=== PATIENT | female | born 1995 | race Caucasian/White ===

== ENCOUNTER 2020-05-06 10:54 | Emergency (ER) | payer OTHER ==
[~2020-05-06] VITALS: Ht 167.6 cm; Wt 50.0 kg
[2020-05-06 11:00] VITALS: BP 131/87
[2020-05-06] MEDS ORDERED: DOXY100C2 PO (11:19)
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
== END 2020-05-06 11:40 | disposition home or self-care (01) ==
LOC: ER 10:54
DX: S70.362A Insect bite (nonvenomous), left thigh, initial encounter (principal); W57.XXXA Bitten or stung by nonvenomous insect and other nonvenomous arthropods, initial encounter; Y93.89 Activity, other specified; Y92.89 Other specified places as the place of occurrence of the external cause; Y99.8 Other external cause status
CPT/HCPCS: 99283

== ENCOUNTER 2020-07-11 08:53 | Emergency (ER) | payer OTHER ==
[~2020-07-11] VITALS: Ht 160 cm; Wt 42.9 kg
[~2020-07-11 08:53] MED LIST: DOXY100C2 PO
[2020-07-11 08:58] VITALS: BP 105/76
[2020-07-11] MEDS ORDERED: AMOX500C PO (09:43)
--- NOTE | 2020-07-11 09:43 | PHYS DOC ---
Past History Past Medical History: No Pertinent History Past Surgical History: No Surgical History Alcohol Use: None General Adult EDM: Chief Complaint: SORE THROAT HPI: HPI: Patient is a 24-year-old female who presented to ER today for evaluation of sore throat, body ache, nonproductive cough for several days. Patient denies any headache, no abdominal pain, no nausea vomiting. Patient denies being exposed to anybody who tested positive for COVID-19 Review of Systems: Review of Systems: Constitutional: Denies fever or chills Eyes: Denies change in visual acuity HENT: Positive for sore throat Respiratory: Positive for cough, no trouble breathing. Cardiovascular: Denies chest pain or edema GI: Denies abdominal pain, nausea, vomiting, bloody stools or diarrhea : Denies dysuria Musculoskeletal: Denies back pain or joint pain Integument: Denies rash Neurologic: Denies headache, focal weakness or sensory changes Endocrine: Denies polyuria or polydipsia Lymphatic: Denies swollen glands Psychiatric: Denies depression or anxiety Heart Score: Risk Factors: Risk Factors: DM, Current or recent (<one month) smoker, HTN, HLP, family history of CAD, obesity. Risk Scores: Score 0 - 3: 2.5% MACE over next 6 weeks - Discharge Home Score 4 - 6: 20.3% MACE over next 6 weeks - Admit for Clinical Observation Score 7 - 10: 72.7% MACE over next 6 weeks - Early Invasive Strategies Allergies: Allergies: Allergies Coded Allergies Type Severity Reaction Last Updated Verified No Known Drug Allergies 05/06/20 No Physical Exam: PE: Constitutional: Well developed, well nourished, no acute distress, non-toxic appearance. [] HENT: Normocephalic, atraumatic, bilateral external ears normal, oropharynx moist, erythema with bilateral tonsillar exudation and erythema, nose normal. [] Eyes: PERRLA, EOMI, conjunctiva normal, no discharge. [] Neck: Normal range of motion, no tenderness, supple, no stridor. [] Cardiovascular:Heart rate regular rhythm, no murmur [] Lungs & Thorax: Bilateral breath sounds clear to auscultation [] Abdomen: Bowel sounds normal, soft, no tenderness, no masses, no pulsatile masses. [] Skin: Warm, dry, no erythema, no rash. [] Back: No tenderness, no CVA tenderness. [] Extremities: No tenderness, no cyanosis, no clubbing, ROM intact, no edema. [] Neurologic: Alert and oriented X 3, normal motor function, normal sensory function, no focal deficits noted. [] Psychologic: Affect normal, judgement normal, mood normal. [] Current Patient Data: Vital Signs: Vital Signs Date Time Temp Pulse Resp B/P (MAP) Pulse Ox O2 Delivery O2 Flow Rate FiO2 07/11/20 08:58 99.0 96 16 105/76 (86) 98 Room Air EKG: EKG: [] Radiology/Procedures: Radiology/Procedures: [][address] [address] IMAGING REPORT Signed PATIENT: PARKER BILLS ACCOUNT: [id number] : 1995 LOCATION: ER AGE: 24 SEX: F EXAM STATUS: REG ER ORD. PHYSICIAN: ANNALEE LEWIS DO REASON: cough PROCEDURE: CHEST AP ONLY INDICATION: Reason: cough / Spl. Instructions: / History: COMPARISON: None. FINDINGS: Single view of chest obtained. Cardiac silhouette is unremarkable. Hyperexpanded lungs without focal airspace consolidation. Obliquely oriented line along the right lateral thorax which is most likely secondary to a skin fold given the morphology. IMPRESSION: * No focal airspace consolidation or edema. Electronically signed by: Meenakshi Jaffe MD (07/11/2020 10:01 AM) [id number] DICTATED AND SIGNED BY: MEENAKSHI JAFFE MD DATE: 07/11/20 1001 CC: ANNALEE LEWIS DO; PHILLIP MAYES MD ~ Course & Med Decision Making: Course & Med Decision Making Pertinent Labs and Imaging studies reviewed. (See chart for details) [] Dragon Disclaimer: Dragon Disclaimer: This electronic medical record was generated, in whole or in part, using a voice recognition dictation system. Departure Departure: Impression: Primary Impression: Strep pharyngitis Disposition: HOME/RESIDENCE PRIOR TO ADM Condition: STABLE Referrals: PHILLIP MAYES MD (PCP) follow up with your doctor on Wednesday for reevaluation. Patient Instructions: Strep Throat Additional Instructions: Thank you for visiting our Emergency Department. We appreciate you trusting us with your care. If any additional problems come up don't hesitate to return to visit us. Please follow up with your primary care provider so they can plan additional care if needed and know about the problem that you had. If symptoms worsen come back to the Emergency Department. Any concerning symptoms that start such as chest pain, shortness of air, weakness or numbness on one side of the body, running high fevers or any other concerning symptoms return to the ER. Scripts Amoxicillin (AMOXICILLIN) 500 Mg Capsule 1 CAP PO TID for streph, #30 CAP Prov: ANNALEE LEWIS DO 07/11/20 Justification of Admission: Justification of Admission: Justification of Admission Dx: N/A ANNALEE LEWIS DO Jul 11, 2020 09:43
--- NOTE | 2020-07-11 10:04 | RAD ---
INDICATION: Reason: cough / Spl. Instructions: / History: COMPARISON: None. FINDINGS: Single view of chest obtained. Cardiac silhouette is unremarkable. Hyperexpanded lungs without focal airspace consolidation. Obliquely oriented line along the right lateral thorax which is most likely secondary to a skin fold given the morphology. IMPRESSION: * No focal airspace consolidation or edema. Electronically signed by: Charly Toney MD (07/11/2020 10:01 AM) [id number]
--- NOTE | 2020-07-12 08:50 | NUR ---
IP: attempt to notify patient of COVID result, unable to leave call back message.
--- NOTE | 2020-07-12 15:06 | NUR ---
IP: Notified patient of COVID result.
== END 2020-07-11 09:58 | disposition home or self-care (01) ==
LOC: ER 08:53
DX: J02.0 Streptococcal pharyngitis (principal); Z20.828 Contact with and (suspected) exposure to other viral communicable diseases
CPT/HCPCS: 71045; 87880; 99284; U0003

== ENCOUNTER 2020-08-13 21:06 | Emergency (ER) | payer OTHER ==
[~2020-08-13] VITALS: Ht 160 cm; Wt 42.9 kg
[~2020-08-13 21:06] MED LIST changes: +AMOX500C PO
[2020-08-13 21:15] VITALS: BP 98/74
[2020-08-13] MEDS ORDERED: IV NORMAL SALINE 1,000ML 1,000 ML IV ONE (22:30)
--- NOTE | 2020-08-13 22:38 | PHYS DOC ---
Past History Past Medical History: Other Additional Past Medical Histor: benign cyst on thyroid Past Surgical History: No Surgical History Alcohol Use: None General Adult EDM: Chief Complaint: ANXIETY/PANIC ATTACK HPI: HPI: Patient is a 25-year-old female brought in by EMS for "anxiety". Patient states she has not been feeling well today has had some congestion and achiness. Says that she smoked marijuana with her and started feeling tingling in her extremities palpitations shortness of breath. Patient is notably hyperventilating and anxious on presentation. Patient states she does not use any other drugs. Has had similar presentations in the past with negative work- up. She says she only smokes occasionally, not every day. Says she and her have smoked this particular marijuana previously without any adverse re actions. Review of Systems: Review of Systems: Constitutional: Denies fever or chills Eyes: Denies change in visual acuity HENT: Denies nasal congestion or sore throat Respiratory: Denies cough or shortness of breath Cardiovascular: Denies chest pain or edema complains of tachycardia and palpitations GI: Denies abdominal pain, nausea, vomiting, bloody stools or diarrhea : Denies dysuria Musculoskeletal: Denies back pain or joint pain Integument: Denies rash Neurologic: Denies headache, focal weakness or sensory changes complaining of tremors and paresthesias Endocrine: Denies polyuria or polydipsia Lymphatic: Denies swollen glands Psychiatric: Denies depression or anxiety Heart Score: Risk Factors: Risk Factors: DM, Current or recent (<one month) smoker, HTN, HLP, family history of CAD, obesity. Risk Scores: Score 0 - 3: 2.5% MACE over next 6 weeks - Discharge Home Score 4 - 6: 20.3% MACE over next 6 weeks - Admit for Clinical Observation Score 7 - 10: 72.7% MACE over next 6 weeks - Early Invasive Strategies Current Medications: Current Meds: Current Medications Medications (Trade) Dose Ordered Sig/Terry Start Time Stop Time Status Last Admin Dose Admin Lorazepam (Ativan Inj) 0.5 mg 1X ONCE 08/13/20 22:30 08/13/20 22:31 DC Sodium Chloride 1,000 ml @ 1,000 mls/hr 1X ONCE 08/13/20 22:30 08/13/20 23:29 Allergies: Allergies: Allergies Coded Allergies Type Severity Reaction Last Updated Verified No Known Drug Allergies 07/11/20 No Physical Exam: PE: Constitutional: Well developed, well nourished, no acute distress, non-toxic appearance. [] HENT: Normocephalic, atraumatic, bilateral external ears normal, oropharynx moist, no oral exudates, nose normal. [] Eyes: PERRLA, EOMI, conjunctiva normal, no discharge. [] Neck: Normal range of motion, no tenderness, supple, no stridor. [] Cardiovascular:Heart rate tachycardic, regular rhythm, no murmur [] Lungs & Thorax: Bilateral breath sounds clear to auscultation [] mild tachypnea Abdomen: Bowel sounds normal, soft, no tenderness, no masses, no pulsatile masses. [] Skin: Warm, dry, no erythema, no rash. [] Back: No tenderness, no CVA tenderness. [] Extremities: No tenderness, no cyanosis, no clubbing, ROM intact, no edema. [] Neurologic: Alert and oriented X 3, normal motor function, normal sensory function, no focal deficits noted. [] Psychologic: Affect normal, judgement normal, mood normal. [] Current Patient Data: Vital Signs: Vital Signs Date Time Temp Pulse Resp B/P (MAP) Pulse Ox O2 Delivery O2 Flow Rate FiO2 08/13/20 21:15 98.4 70 22 98/74 (82) 92 Room Air EKG: EKG: Sinus tachycardia, rightward axis, normal intervals, no ectopy [] Radiology/Procedures: Radiology/Procedures: [] Course & Med Decision Making: Course & Med Decision Making Patient able to calm down and given IV fluids, heart rate returns 80. Discussed with patient mild hypokalemia will give prescription for follow-up with primary care and the guidance center. Pertinent Labs and Imaging studies reviewed. (See chart for details) [] Dragon Disclaimer: Dragon Disclaimer: This electronic medical record was generated, in whole or in part, using a voice recognition dictation system. Departure Departure: Impression: Primary Impression: Anxiety Additional Impression: Hypokalemia Disposition: 01 DC HOME SELF CARE/HOMELESS Condition: STABLE Referrals: PHILLIP MAYES MD (PCP) Scripts Hydroxyzine Hcl (HYDROXYZINE HCL) 25 Mg Tablet 1 TAB PO TID for anxiety for 20 Days, #60 TAB Prov: EMMY WILLIAM MD 08/14/20 Potassium Chloride (Potassium Chloride) 10 Meq Tab.er.prt 10 MEQ PO BID for hypokalemia for 5 Days, #10 TAB.SR Prov: EMMY WILLIAM MD 08/14/20 EMMY WILLIAM MD Aug 13, 2020 22:38
[2020-08-13 23:15] LABS: BASO % 0 % (0-3); EOS % 0 % (0-3); HEMATOCRIT 39.3 % (36.0-47.0); LYMPH # 1.2 x10^3/uL (1.0-4.8); LYMPH % 12 % (24-48); MEAN CORPUSCULAR HEMOGLOBIN 31 pg (25-35); MEAN CORPUSCULAR HGB CONC 33 g/dL (31-37); MEAN CORPUSCULAR VOLUME 92 fL (79-100); MONO # 0.5 x10^3/uL (0.0-1.1); MONO % 5 % (0-9); NEUT # 8.5 x10^3uL (1.8-7.7); NEUT % 83 % (31-73); PLATELET COUNT 222 x10^3/uL (140-400); RED BLOOD COUNT 4.25 x10^6/uL (3.50-5.40); RED CELL DISTRIBUTION WIDTH 12.9 % (11.5-14.5); WHITE BLOOD COUNT 10.3 x10^3/uL (4.0-11.0)
[2020-08-13 23:20] LABS: BILIRUBIN,URINE NEG (NEG); CLARITY,URINE CLEAR; COLOR,URINE YELLOW; GLUCOSE,URINE 250 mg/dL (NEG)
[2020-08-13 23:21] LABS: BACTERIA,URINE 0 /HPF (0-FEW); NITRITE,URINE NEG (NEG); RBC,URINE 0 /HPF (0-2); SQUAMOUS EPITHELIAL CELL,UR OCC /LPF; UROBILINOGEN,URINE 0.2 mg/dL (0.2 mg/dL); WBC,URINE OCC /HPF (0-4)
[2020-08-13 23:33] LABS: CALCIUM 9.1 mg/dL (8.5-10.1); CREATININE 0.8 mg/dL (0.6-1.0); GFR 88.9; POTASSIUM 3.2 mmol/L (3.5-5.1)
[2020-08-13 23:37] LABS: BARBITURATES NEG (NEG); BENZODIAZEPINES NEG (NEG); CANNABINOIDS NEG (NEG); COCAINE NEG (NEG); METHADONE NEG (NEG); OPIATES NEG (NEG); PHENCYCLIDINE NEG (NEG)
[2020-08-13 23:39] LABS: AMPHETAMINE/METHAMPHETAMINE NEG (NEG)
[2020-08-13 23:41] LABS: ALBUMIN 4.1 g/dL (3.4-5.0); ALBUMIN/GLOBULIN RATIO 1.2 (1.0-1.7); MAGNESIUM 2.1 mg/dL (1.8-2.4); TOTAL BILIRUBIN 0.2 mg/dL (0.2-1.0); TOTAL PROTEIN 7.4 g/dL (6.4-8.2)
[2020-08-14] MEDS ORDERED: POTASSIUM CHLORIDE 20 MEQ TABLET.ER. PO ONE ×2 (00:20→01:00)
[2020-08-14] MEDS ORDERED: POTA10TA32 PO (00:50)
[2020-08-14] MEDS ORDERED: HYDR25TA PO (00:50)
--- NOTE | 2020-08-14 03:47 | EKG ---
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
== END 2020-08-14 01:15 | disposition home or self-care (01) ==
LOC: ER 21:06
DX: F41.9 Anxiety disorder, unspecified (principal); E87.6 Hypokalemia
CPT/HCPCS: 36415; 80053; 80307; 81001; 81025; 82947; 83735; 84443; 84484; 85025; 85379; 93005; 96361; 96374; 99284; J2060; J7030

== ENCOUNTER 2020-08-22 22:56 | Emergency (ER) | payer OTHER ==
[~2020-08-22] VITALS: Ht 160 cm; Wt 42.9 kg
[~2020-08-22 22:56] MED LIST changes: +HYDR25TA PO; +POTA10TA32 PO
--- NOTE | 2020-08-22 23:12 | EKG ---
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
[2020-08-22] MEDS ORDERED: diphenhydrAMINE 50 MG/ML VIAL IVP ONE (23:30)
[2020-08-22] MEDS ORDERED: IV NORMAL SALINE 1,000ML 1,000 ML IV ONE (23:30)
--- NOTE | 2020-08-22 23:41 | PHYS DOC ---
Past History Past Medical History: Seizure, Other Additional Past Medical Histor: benign cyst on thyroid Past Surgical History: No Surgical History Alcohol Use: None General Adult EDM: Chief Complaint: Palpitations HPI: HPI: 25-year-old female presents with palpitations. The patient has been having palpitations for the last couple of hours. She has some mild shortness of breath, but denies diaphoresis. She has not been doing anything strenuous to cause this. She was seen in this emergency room about a week ago after having a seizure. She was found to be low in calcium and potassium. She has been taking hydroxyzine as well as potassium and calcium supplements all week as prescribed. The patient does smoke marijuana twice a month but has not smoked anything since the last week because of the seizure. She does not smoke cigarettes. She does not vape. She does not drink a lot of caffeine. She denies any other drug or alcohol use. She admits to being anxious about what is going on, but does not have a significant anxiety history. She has never been hospitalized or placed on medications until the recent hydroxyzine. She denies fever or chills. She states that she is eating and drinking normally. She has always been underweight. Review of Systems: Review of Systems: Constitutional: Denies fever or chills Eyes: Denies change in visual acuity HENT: Denies nasal congestion or sore throat Respiratory: Mild shortness of breath Cardiovascular: Palpitations GI: Denies abdominal pain, nausea, vomiting, bloody stools or diarrhea : Denies dysuria Musculoskeletal: Denies back pain or joint pain Integument: Denies rash Neurologic: Denies headache, focal weakness or sensory changes Endocrine: Denies polyuria or polydipsia Lymphatic: Denies swollen glands Psychiatric: Denies depression or anxiety Current Medications: Current Meds: Current Medications Medications (Trade) Dose Ordered Sig/Terry Start Time Stop Time Status Last Admin Dose Admin Diphenhydramine HCl (Benadryl) 25 mg 1X ONCE 08/22/20 23:30 08/22/20 23:31 DC Sodium Chloride 1,000 ml @ 1,000 mls/hr 1X ONCE 08/22/20 23:30 08/23/20 00:29 Allergies: Allergies: Allergies Coded Allergies Type Severity Reaction Last Updated Verified No Known Drug Allergies 07/11/20 No Physical Exam: PE: Constitutional: Well developed, well nourished, thin, no acute distress, non- toxic appearance. [] HENT: Normocephalic, atraumatic, bilateral external ears normal, oropharynx moist, no oral exudates, nose normal. [] Eyes: PERRLA, EOMI, conjunctiva normal, no discharge. [] Neck: Normal range of motion, no tenderness, supple, no stridor. [] Cardiovascular: Heart rate 117, regular rhythm, no murmur [] Lungs & Thorax: Bilateral breath sounds clear to auscultation [] Abdomen: Bowel sounds normal, soft, no tenderness, no masses, no pulsatile masses. [] Skin: Warm, dry, no erythema, no rash. [] Back: No tenderness, no CVA tenderness. [] Extremities: No tenderness, no cyanosis, no clubbing, ROM intact, no edema. [] Neurologic: Alert and oriented X 3, normal motor function, normal sensory function, no focal deficits noted. [] Psychologic: Affect normal, judgement normal, mood concerned. [] Current Patient Data: Vital Signs: Vital Signs Date Time Temp Pulse Resp B/P (MAP) Pulse Ox O2 Delivery O2 Flow Rate FiO2 08/22/20 23:00 97.0 119 12 133/83 (100) 100 EKG: EKG: Sinus tachycardia, rate 113, normal axis, no ST elevation or depression. [] Radiology/Procedures: Radiology/Procedures: [] Impressions: AP chest. HISTORY: Palpitations AP view was taken of the chest. Lungs are free of infiltrates. There is a density on the right probably a nipple shadow which is asymmetric compared to the left side. There is no pleural effusion. Heart is normal in size. There is a skin fold on the right. There is thoracolumbar scoliosis. IMPRESSION: 1. Probable nipple shadow on the right. 2. No acute infiltrates. Electronically signed by: Rai Cantu MD (08/23/2020 12:38 AM) [id number] DICTATED AND SIGNED BY: RAI CANTU MD DATE: 08/23/20 0038 CC: ALEN LEBLANC DO; PHILLIP MAYES MD ~ Heart Score: Risk Factors: Risk Factors: DM, Current or recent (<one month) smoker, HTN, HLP, family history of CAD, obesity. Risk Scores: Score 0 - 3: 2.5% MACE over next 6 weeks - Discharge Home Score 4 - 6: 20.3% MACE over next 6 weeks - Admit for Clinical Observation Score 7 - 10: 72.7% MACE over next 6 weeks - Early Invasive Strategies Course & Med Decision Making: Course & Med Decision Making Pertinent Labs and Imaging studies reviewed. (See chart for details) The patient's chest x-ray is unremarkable. Her EKG showed sinus tachycardia. She was given a liter normal saline. Her labs are significant for a potassium of 2.8. I have given 40 mEq of potassium orally and I will give her 40 more prior to discharge. Her urinalysis is negative for infection. Her urine drug screen is negative. Her troponin is negative. After a liter normal saline her heart rate is within normal limits. The patient does not appear to be keeping up with her potassium despite supplements. I recommended that she triple her dose to take it 3 times a day and follow-up with her doctor next week. She is stable for discharge at this time. [] Fely Disclaimer: Fely Disclaimer: This electronic medical record was generated, in whole or in part, using a voice recognition dictation system. Departure Departure: Impression: Primary Impression: Hypokalemia Additional Impression: Palpitations Disposition: 01 DC HOME SELF CARE/HOMELESS Condition: STABLE Referrals: PHILLIP MAYES MD (PCP) Patient Instructions: Hypokalemia, Palpitations, [id number] ALEN LEBLANC DO Aug 22, 2020 23:41
[2020-08-22 23:59] LABS: BASO % 0 % (0-3); EOS # 0.2 x10^3/uL (0.0-0.7); EOS % 2 % (0-3); HEMATOCRIT 38.7 % (36.0-47.0); LYMPH # 3.7 x10^3/uL (1.0-4.8); LYMPH % 38 % (24-48); MEAN CORPUSCULAR HEMOGLOBIN 31 pg (25-35); MEAN CORPUSCULAR HGB CONC 34 g/dL (31-37); MEAN CORPUSCULAR VOLUME 92 fL (79-100); MONO # 0.5 x10^3/uL (0.0-1.1); MONO % 5 % (0-9); NEUT # 5.3 x10^3uL (1.8-7.7); NEUT % 54 % (31-73); PLATELET COUNT 279 x10^3/uL (140-400); RED BLOOD COUNT 4.21 x10^6/uL (3.50-5.40); RED CELL DISTRIBUTION WIDTH 12.8 % (11.5-14.5); WHITE BLOOD COUNT 9.8 x10^3/uL (4.0-11.0)
[2020-08-23] LABS: BARBITURATES NEG (NEG); BENZODIAZEPINES NEG (NEG); CANNABINOIDS NEG (NEG); COCAINE NEG (NEG); METHADONE NEG (NEG); OPIATES NEG (NEG); PHENCYCLIDINE NEG (NEG)
[2020-08-23 00:01] LABS: AMPHETAMINE/METHAMPHETAMINE NEG (NEG)
[2020-08-23 00:06] LABS: BILIRUBIN,URINE NEG (NEG); CLARITY,URINE CLEAR; COLOR,URINE YELLOW; GLUCOSE,URINE NEG (NEG)
[2020-08-23 00:07] LABS: BACTERIA,URINE FEW /HPF (0-FEW); NITRITE,URINE NEG (NEG); SQUAMOUS EPITHELIAL CELL,UR FEW /LPF; UROBILINOGEN,URINE 0.2 mg/dL (0.2 mg/dL)
[2020-08-23 00:08] LABS: ALBUMIN/GLOBULIN RATIO 1.1 (1.0-1.7); CALCIUM 9.2 mg/dL (8.5-10.1); CREATININE 0.7 mg/dL (0.6-1.0); GFR 103.7; TOTAL BILIRUBIN 0.1 mg/dL (0.2-1.0); TOTAL PROTEIN 7.6 g/dL (6.4-8.2)
[2020-08-23 00:12] LABS: POTASSIUM 2.8 mmol/L (3.5-5.1)
[2020-08-23] MEDS ORDERED: POTASSIUM CHLORIDE 20 MEQ TABLET.ER. PO ONE ×2 (00:30→01:30)
[2020-08-23] MEDS ORDERED: ONDANSETRON PF 4 MG/2 ML VIAL. IVP ONE (00:30)
--- NOTE | 2020-08-23 00:41 | RAD ---
AP chest. HISTORY: Palpitations AP view was taken of the chest. Lungs are free of infiltrates. There is a density on the right probably a nipple shadow which is asymmetric compared to the left side. There is no pleural effusion. Heart is normal in size. There is a skin fold on the right. There is thoracolumbar scoliosis. IMPRESSION: 1. Probable nipple shadow on the right. 2. No acute infiltrates. Electronically signed by: Rai Zazueta MD (08/23/2020 12:38 AM) [id number]
[2020-08-23 01:07] VITALS: BP 115/77
== END 2020-08-23 01:17 | disposition home or self-care (01) ==
LOC: ER 22:56
DX: E87.6 Hypokalemia (principal); R00.2 Palpitations; R06.02 Shortness of breath; R56.9 Unspecified convulsions; Z98.890 Other specified postprocedural states
CPT/HCPCS: 36415; 71045; 80053; 80307; 81001; 81025; 84484; 85025; 87086; 93005; 96361; 96374; 96375; 99285; J1200; J2405; J7030

== ENCOUNTER 2020-09-16 22:31 | Emergency (ER) | payer OTHER ==
[~2020-09-16] VITALS: Ht 160 cm; Wt 43.8 kg
[2020-09-16] MEDS ORDERED: ONDANSETRON PF 4 MG/2 ML VIAL. IVP ONE (22:45)
[2020-09-16] MEDS ORDERED: IV NORMAL SALINE 1,000ML 1,000 ML IV SCH (22:45)
--- NOTE | 2020-09-16 22:49 | PHYS DOC ---
Past History Past Medical History: Seizure, Other Additional Past Medical Histor: benign cyst on thyroid Past Surgical History: No Surgical History Alcohol Use: None General Adult EDM: Chief Complaint: Palpitations HPI: HPI: Patient is a 25 year old female who presents for evaluation of palpitations, nausea and dizziness. She had recurrent symptoms of the past 2 to 3 weeks but was once again worse tonight. Furthermore she had a recent low potassium level and has been on potassium supplements. In the past 24 hours patient recently had a Holter monitor. We do not know those results. Dr. Mayes is her physician. Patient is otherwise benign-appearing. She has stable blood pressure but heart rate is in the 140s (sinus tachy) Review of Systems: Review of Systems: Constitutional: Denies fever or chills Eyes: Denies change in visual acuity HENT: Denies nasal congestion or sore throat Respiratory: Denies cough has shortness of breath Cardiovascular: has chest pressure, no edema GI: Denies abdominal pain, has nausea, no vomiting, no bloody stools or diarrhea : Denies dysuria Musculoskeletal: Denies back pain or joint pain Integument: Denies rash Neurologic: Denies headache, focal weakness or sensory changes Endocrine: Denies polyuria or polydipsia Lymphatic: Denies swollen glands Psychiatric: Denies depression has anxiety Allergies: Allergies: Allergies Coded Allergies Type Severity Reaction Last Updated Verified No Known Drug Allergies 07/11/20 No Physical Exam: PE: Constitutional: Well developed, well nourished, mild acute distress, non-toxic appearance. [] HENT: Normocephalic, atraumatic, bilateral external ears normal, oropharynx moist, no oral exudates, nose normal. [] Eyes: PERRL, EOMI, conjunctiva normal, no discharge. [] Neck: Normal range of motion, no tenderness, supple, no stridor. [] Cardiovascular:Heart rate tachy regular rhythm, no murmur [] Lungs & Thorax: Bilateral breath sounds clear to auscultation [] Abdomen: Bowel sounds normal, soft, no tenderness, no masses. [] Skin: Warm, dry, no erythema, no rash. [] Back: No tenderness. [] Extremities: No tenderness, no cyanosis, ROM intact, no edema. [] Neurologic: Alert and oriented, normal motor function, normal sensory function, no focal deficits noted. [] Psychologic: Affect normal, judgement normal, mood abnormal. [] Current Patient Data: Labs: Laboratory Tests Test 09/16/20 22:40 09/16/20 23:00 Urine Collection Type Unknown Urine Color Yellow Urine Clarity Clear Urine pH 5.5 Urine Specific [place] >=1.030 Urine Protein 30 mg/dl Urine Glucose (UA) Neg mg/dL Urine Ketones (Stick) Trace mg/dL Urine Blood Neg Urine Nitrite Neg Urine Bilirubin Neg Urine Urobilinogen Dipstick 0.2 mg/dL Urine Leukocyte Esterase Trace Urine RBC 0 /HPF Urine WBC 1-4 /HPF Urine Squamous Epithelial Cells Few /LPF Urine Bacteria Few /HPF White Blood Count 8.1 x10^3/uL Red Blood Count 4.60 x10^6/uL Hemoglobin 14.0 g/dL Hematocrit 42.1 % Mean Corpuscular Volume 92 fL Mean Corpuscular Hemoglobin 30 pg Mean Corpuscular Hemoglobin Concent 33 g/dL Red Cell Distribution Width 12.9 % Platelet Count 239 x10^3/uL Neutrophils (%) (Auto) 43 % Lymphocytes (%) (Auto) 50 % Monocytes (%) (Auto) 6 % Eosinophils (%) (Auto) 1 % Basophils (%) (Auto) 0 % Neutrophils # (Auto) 3.4 x10^3uL Lymphocytes # (Auto) 4.0 x10^3/uL Monocytes # (Auto) 0.4 x10^3/uL Eosinophils # (Auto) 0.1 x10^3/uL Basophils # (Auto) 0.0 x10^3/uL D-Dimer (Myrna) 0.47 mg/L Sodium Level 139 mmol/L Potassium Level 3.1 mmol/L Chloride Level 104 mmol/L Carbon Dioxide Level 26 mmol/L Anion Gap 9 Blood Urea Nitrogen 10 mg/dL Creatinine 0.6 mg/dL Estimated GFR (Cockcroft-Gault) 123.9 BUN/Creatinine Ratio 17 Glucose Level 117 mg/dL Calcium Level 9.4 mg/dL Total Bilirubin 0.3 mg/dL Aspartate Amino Transf (AST/SGOT) 9 U/L Alanine Aminotransferase (ALT/SGPT) 15 U/L Alkaline Phosphatase 76 U/L Troponin I Quantitative < 0.017 ng/mL Total Protein 7.5 g/dL Albumin 4.2 g/dL Albumin/Globulin Ratio 1.3 Serum Test, Qualitative Negative Current Medications Medications (Trade) Dose Ordered Sig/Terry Route PRN Reason Start Time Stop Time Status Last Admin Dose Admin Sodium Chloride 1,000 ml @ 1,000 mls/hr Q1H IV 09/16/20 22:45 09/16/20 23:44 DC 09/16/20 23:01 Ondansetron HCl (Zofran) 4 mg 1X ONCE IVP 09/16/20 22:45 09/16/20 22:51 DC 09/16/20 23:01 EKG: EKG: Sinus tachycardia rate 110, otherwise unremarkable EKG, not STEMI[] Radiology/Procedures: Radiology/Procedures: [[address] [address] IMAGING REPORT Signed PATIENT: PARKER BILLS ACCOUNT: [id number] : 1995 LOCATION: ER AGE: 25 SEX: F EXAM STATUS: REG ER ORD. PHYSICIAN: MARIMAR GALLARDO DO REASON: short of air PROCEDURE: PORTABLE CHEST 1V PORTABLE CHEST 1V Clinical History: Reason: short of air / Spl. Instructions: / History: Technique: AP view of the chest was obtained at 09/16/2020 10:45 PM. Comparison: August 22, 2020. Findings: The cardiomediastinal silhouette is normal. The pulmonary vasculature is normal. The lungs and pleural margins are clear. The lungs are hyperinflated. Impression: No evidence of an acute cardiopulmonary process. Electronically signed by: Juanpablo Hitchcock III, MD (09/16/2020 11:56 PM) [facility] DICTATED AND SIGNED BY: JUANPABLO HITCHCOCK III, MD DATE: 09/16/20 7332 CC: MARIMAR GALLARDO DO; PHILLIP MAYES MD ~ ] Heart Score: HEART Score for Chest Pain: HEART Score for Chest Pain Response (Comments) Value History Slighlty/Non-Suspicious 0 ECG Normal 0 Age < 45 0 Risk Factors No Risk Factors 0 Troponin < Normal Limit 0 Total 0 Risk Factors: Risk Factors: DM, Current or recent (<one month) smoker, HTN, HLP, family history of CAD, obesity. Risk Scores: Score 0 - 3: 2.5% MACE over next 6 weeks - Discharge Home Score 4 - 6: 20.3% MACE over next 6 weeks - Admit for Clinical Observation Score 7 - 10: 72.7% MACE over next 6 weeks - Early Invasive Strategies Course & Med Decision Making: Course & Med Decision Making Pertinent Labs and Imaging studies reviewed. (See chart for details) [] Dragon Disclaimer: Dragon Disclaimer: This electronic medical record was generated, in whole or in part, using a voice recognition dictation system. 0036 stable, feeling better at this time. Her heart rate is now under 100. Patient was worked up for dangerous causes of tachycardia and palpitations. Patient D-dimer was normal and I do not suspect an obvious pulmonary embolism at this time. Patient's Holter monitor results are not known tonight. However she will call and see Dr. Mayes as soon as possible to go over those results. There is no indication for admission at this time. Chest x-ray was also clear. Departure Departure: Impression: Primary Impression: Heart palpitations Additional Impressions: Hypokalemia UTI (urinary tract infection) Qualified Codes: N39.0 - Urinary tract infection, site not specified Disposition: 01 DC HOME SELF CARE/HOMELESS Condition: STABLE Referrals: PHILLIP MAYES MD (PCP) Patient Instructions: Hypokalemia-Brief, Palpitations, [id number], Urinary Tract Infection Additional Instructions: Drink plenty fluids, rest, call and see your physician right away regarding your Holter monitor results, return if worsen Scripts Cephalexin (CEPHALEXIN) 250 Mg Capsule 1 CAP PO QID for UTI, #28 CAP Prov: MARIMAR GALLARDO DO 09/17/20 MARIMAR GALLARDO DO Sep 16, 2020 22:49
[2020-09-16 23:26] LABS: BASO % 0 % (0-3); EOS # 0.1 x10^3/uL (0.0-0.7); EOS % 1 % (0-3); HEMATOCRIT 42.1 % (36.0-47.0); LYMPH % 50 % (24-48); MEAN CORPUSCULAR HEMOGLOBIN 30 pg (25-35); MEAN CORPUSCULAR HGB CONC 33 g/dL (31-37); MEAN CORPUSCULAR VOLUME 92 fL (79-100); MONO # 0.4 x10^3/uL (0.0-1.1); MONO % 6 % (0-9); NEUT # 3.4 x10^3uL (1.8-7.7); NEUT % 43 % (31-73); PLATELET COUNT 239 x10^3/uL (140-400); RED CELL DISTRIBUTION WIDTH 12.9 % (11.5-14.5); WHITE BLOOD COUNT 8.1 x10^3/uL (4.0-11.0)
[2020-09-16 23:29] LABS: CALCIUM 9.4 mg/dL (8.5-10.1); CREATININE 0.6 mg/dL (0.6-1.0); GFR 123.9; POTASSIUM 3.1 mmol/L (3.5-5.1)
[2020-09-16 23:33] LABS: PREG TEST PT QUAL NEGATIVE (NEG)
[2020-09-16 23:34] LABS: BACTERIA,URINE FEW /HPF (0-FEW); BILIRUBIN,URINE NEG (NEG); CLARITY,URINE CLEAR; COLOR,URINE YELLOW; GLUCOSE,URINE NEG (NEG); NITRITE,URINE NEG (NEG); RBC,URINE 0 /HPF (0-2); SQUAMOUS EPITHELIAL CELL,UR FEW /LPF; UROBILINOGEN,URINE 0.2 mg/dL (0.2 mg/dL)
[2020-09-16 23:35] LABS: ALBUMIN 4.2 g/dL (3.4-5.0); ALBUMIN/GLOBULIN RATIO 1.3 (1.0-1.7); TOTAL BILIRUBIN 0.3 mg/dL (0.2-1.0); TOTAL PROTEIN 7.5 g/dL (6.4-8.2)
--- NOTE | 2020-09-16 23:59 | RAD ---
PORTABLE CHEST 1V Clinical History: Reason: short of air / Spl. Instructions: / History: Technique: AP view of the chest was obtained at 09/16/2020 10:45 PM. Comparison: August 22, 2020. Findings: The cardiomediastinal silhouette is normal. The pulmonary vasculature is normal. The lungs and pleural margins are clear. The lungs are hyperinflated. Impression: No evidence of an acute cardiopulmonary process. Electronically signed by: Rashad Hudson III, MD (09/16/2020 11:56 PM) [facility]
--- NOTE | 2020-09-17 00:14 | EKG ---
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
[2020-09-17] MEDS ORDERED: CEPH-281 PO (00:40)
[2020-09-17 01:00] VITALS: BP 121/86
[2020-09-17] MEDS ORDERED: ACETAMINOPHEN 325 MG TABLET PO ONE (01:00)
[2020-09-17] MEDS ORDERED: POTASSIUM CHLORIDE 20 MEQ TABLET.ER. PO ONE (01:00)
== END 2020-09-17 01:02 | disposition home or self-care (01) ==
LOC: ER 22:31
DX: N39.0 Urinary tract infection, site not specified (principal); R00.2 Palpitations; E87.6 Hypokalemia
CPT/HCPCS: 36415; 71045; 80053; 81001; 84484; 84703; 85025; 85379; 87086; 93005; 96361; 96374; 99285; J2405; J7030

== ENCOUNTER 2020-10-05 02:02 | Emergency (ER) | payer OTHER ==
[~2020-10-05] VITALS: Ht 160 cm; Wt 45.5 kg
[~2020-10-05 02:02] MED LIST changes: +CEPH-281 PO
--- NOTE | 2020-10-05 02:13 | PHYS DOC ---
Past History Past Medical History: Seizure, Other Additional Past Medical Histor: benign cyst on thyroid Past Medical History Hx. Hypokalemia Past Surgical History: No Surgical History Alcohol Use: None General Adult EDM: Chief Complaint: Palpitations HPI: HPI: ".. My heart is skipping.. It been really fast.. ".." The last time it happen my potassium was low..." Patient is a 25 year old female who presents with above hx and complaints dysrhythmia. Patient has history of previous episodes which were felt to be due to low potassium. Patient has been taking supplemental potassium. Patient does have history of a thyroid cyst. No history of use of diuretics. No history of excessive caffeine use or other drugs. Has not follow-up with financial processing clerk. Has not follow-up with president mortgage company. Has not follow-up with electrolysis engineer. Patient only follows with Dr. Mayes. Review of Systems: Review of Systems: Constitutional: Denies fever or chills Eyes: Denies change in visual acuity HENT: Denies nasal congestion or sore throat Respiratory: Denies cough or shortness of breath Cardiovascular: Denies chest pain or edema . Complaints of tachycardia. GI: Denies abdominal pain, nausea, vomiting, bloody stools or diarrhea : Denies dysuria Musculoskeletal: Denies back pain or joint pain Integument: Denies rash Neurologic: Denies headache, focal weakness or sensory changes Endocrine: Denies polyuria or polydipsia Lymphatic: Denies swollen glands Psychiatric: Denies depression or anxiety Family History: Family History: Noncontributory to presentation. Current Medications: Current Meds: See nursing for home meds Allergies: Allergies: Allergies Coded Allergies Type Severity Reaction Last Updated Verified No Known Drug Allergies 07/11/20 No Physical Exam: PE: Constitutional: Well developed, well nourished, mild distress, non-toxic appearance. [] HENT: Normocephalic, atraumatic, bilateral external ears normal, oropharynx moist, no oral exudates, nose normal. [] Eyes: PERRLA, EOMI, conjunctiva normal, no discharge. [] Neck: Normal range of motion, no tenderness, supple, no stridor. [] Cardiovascular: Tachycardia heart rate with an irregular rhythm, no murmur [] Lungs & Thorax: Bilateral breath sounds equal apex on auscultation [] Abdomen: Bowel sounds normal, soft, no tenderness, no masses, no pulsatile masses. [] Skin: Warm, dry, no erythema, no rash. [] Back: No tenderness, no CVA tenderness. [] Extremities: No tenderness, no cyanosis, no clubbing, ROM intact, no edema. [] Neurologic: Alert and oriented X 3, normal motor function, normal sensory function, no focal deficits noted. [] Psychologic: Affect anxious, judgement normal, mood normal. [] EKG: EKG: My interpretation EKG shows a sinus rhythm at 117 bpm. No findings of acute STEMI of contralateral changes. [] Radiology/Procedures: Radiology/Procedures: [][place] [address] IMAGING REPORT Signed PATIENT: PARKER BILLS ACCOUNT: [id number] : 1995 LOCATION: ER AGE: 25 SEX: F EXAM STATUS: REG ER ORD. PHYSICIAN: SIDNEY GRACE MD REASON: papitation, cp PROCEDURE: PORTABLE CHEST 1V PORTABLE CHEST 1V INDICATION: Reason: papitation, cp / Spl. Instructions: / History: . COMPARISON STUDY: 09/16/2012. FINDINGS: Lungs: Hyperexpanded lung volume. No pulmonary mass or consolidation. The tracheobronchial tree and hilar structures are normal. Pleura: No pleural effusion or pneumothorax. Heart and Mediastinum: The cardiomediastinal silhouette is normal. The great vessels of the thorax are normal. Bones and Soft Tissues: The bones and soft tissues are within normal limits. IMPRESSION: No acute cardiopulmonary process. Electronically signed by: Roni Honr MD (10/05/2020 2:55 AM) [facility] DICTATED AND SIGNED BY: RONI HORN MD DATE: 10/05/20 0255 CC: SIDNEY GRACE MD; PHILLIP MAYES MD ~MTH0 0 Heart Score: HEART Score for Chest Pain: HEART Score for Chest Pain Response (Comments) Value History Slighlty/Non-Suspicious 0 ECG Normal 0 Age < 45 0 Risk Factors 1 or 2 Risk Factors 1 Troponin < Normal Limit 0 Total 1 Risk Factors: Risk Factors: DM, Current or recent (<one month) smoker, HTN, HLP, family history of CAD, obesity. Risk Scores: Score 0 - 3: 2.5% MACE over next 6 weeks - Discharge Home Score 4 - 6: 20.3% MACE over next 6 weeks - Admit for Clinical Observation Score 7 - 10: 72.7% MACE over next 6 weeks - Early Invasive Strategies Course & Med Decision Making: Course & Med Decision Making Pertinent Labs and Imaging studies reviewed. (See chart for details) Urine still pending at 0530. Pt.requesting discharge before completion of IV potassium. Push fruit juices. Follow up with primary. Consider follow up with Cardiology. May need nephrology eval because of your current episodes of low potassium. Patient continue her potassium supplementation. Patient to continue push fluids and take high potassium foods. Patient return if any concerns. Consider outpatient evaluation by nephrology, endocrinology and cardiology. Impression: 1. Hypokalemia 2.9 2. Tachycardia [] Dragon Disclaimer: Dragon Disclaimer: This electronic medical record was generated, in whole or in part, using a voice recognition dictation system. Departure Departure: Referrals: PHILLIP MAYES MD (PCP) Fely Disclaimer This chart was dictated in whole or in part using Voice Recognition software in a busy, high-work load, and often noisy Emergency Department environment. It may contain unintended and wholly unrecognized errors or omissions. SIDNEY GRACE MD Oct 05, 2020 02:13
[2020-10-05] MEDS ORDERED: ASPIRIN CHEWABLE 81 MG TABLET. PO ONE (02:30)
[2020-10-05] MEDS ORDERED: IV RINGERS SOLUTION,LACTATED 1,000 ML IV SCH (02:30)
[2020-10-05 02:43] LABS: BASO % 0 % (0-3); EOS # 0.1 x10^3/uL (0.0-0.7); EOS % 1 % (0-3); HEMOGLOBIN 12.9 g/dL (12.0-15.5); LYMPH % 52 % (24-48); MEAN CORPUSCULAR HEMOGLOBIN 30 pg (25-35); MEAN CORPUSCULAR HGB CONC 33 g/dL (31-37); MEAN CORPUSCULAR VOLUME 92 fL (79-100); MONO # 0.5 x10^3/uL (0.0-1.1); MONO % 6 % (0-9); NEUT # 3.9 x10^3uL (1.8-7.7); NEUT % 41 % (31-73); PLATELET COUNT 264 x10^3/uL (140-400); RED BLOOD COUNT 4.26 x10^6/uL (3.50-5.40); RED CELL DISTRIBUTION WIDTH 12.6 % (11.5-14.5); WHITE BLOOD COUNT 9.5 x10^3/uL (4.0-11.0)
--- NOTE | 2020-10-05 02:59 | RAD ---
PORTABLE CHEST 1V INDICATION: Reason: papitation, cp / Spl. Instructions: / History: . COMPARISON STUDY: 09/16/2012. FINDINGS: Lungs: Hyperexpanded lung volume. No pulmonary mass or consolidation. The tracheobronchial tree and hilar structures are normal. Pleura: No pleural effusion or pneumothorax. Heart and Mediastinum: The cardiomediastinal silhouette is normal. The great vessels of the thorax are normal. Bones and Soft Tissues: The bones and soft tissues are within normal limits. IMPRESSION: No acute cardiopulmonary process. Electronically signed by: Dave Horn MD (10/05/2020 2:55 AM) [facility]
[2020-10-05 03:04] LABS: ALBUMIN 4.2 g/dL (3.4-5.0); CREATININE 0.7 mg/dL (0.6-1.0); DIRECT BILIRUBIN 0.1 mg/dL (0.0-0.2); GFR 103.7; MAGNESIUM 1.9 mg/dL (1.8-2.4); TOTAL BILIRUBIN 0.2 mg/dL (0.2-1.0); TOTAL PROTEIN 7.4 g/dL (6.4-8.2)
[2020-10-05 03:23] LABS: POTASSIUM 2.9 mmol/L (3.5-5.1)
[2020-10-05] MEDS ORDERED: POTASSIUM CL 40MEQ IN 0.9%NACL 1,000 ML IV ONE (04:00)
[2020-10-05 06:11] VITALS: BP 109/72
[2020-10-05 06:17] LABS: BACTERIA,URINE 0 /HPF (0-FEW); BILIRUBIN,URINE NEG (NEG); CLARITY,URINE CLEAR; COLOR,URINE YELLOW; GLUCOSE,URINE NEG (NEG); NITRITE,URINE NEG (NEG); RBC,URINE 0 /HPF (0-2); SQUAMOUS EPITHELIAL CELL,UR OCC /LPF; UROBILINOGEN,URINE 0.2 mg/dL (0.2 mg/dL); WBC,URINE OCC /HPF (0-4)
[2020-10-05] MEDS ORDERED: POTASSIUM CHLORIDE 20 MEQ TABLET.ER. PO ONE ×2 (06:30→07:00)
[2020-10-05] MEDS ORDERED: MAGNESIUM HYDROXIDE 2,400 MG/30 ML ORAL.SUSP. PO ONE (06:30)
[2020-10-05 08:02] LABS: AMPHETAMINE/METHAMPHETAMINE NEG (NEG); BARBITURATES NEG (NEG); BENZODIAZEPINES NEG (NEG); CANNABINOIDS NEG (NEG); COCAINE NEG (NEG); METHADONE NEG (NEG); OPIATES NEG (NEG); PHENCYCLIDINE NEG (NEG)
--- NOTE | 2020-10-07 09:09 | EKG ---
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
== END 2020-10-05 06:30 | disposition home or self-care (01) ==
LOC: ER 02:02
DX: E87.6 Hypokalemia (principal); R00.0 Tachycardia, unspecified
CPT/HCPCS: 36415; 71045; 80048; 80076; 80307; 81001; 82550; 83690; 83735; 83880; 84443; 84484; 85025; 85379; 85610; 85730; 87086; 93005; 96361; 96365; 96366; 99285; J7120

== ENCOUNTER 2020-10-05 21:20 | Emergency (ER) | payer OTHER ==
[~2020-10-05] VITALS: Ht 160 cm; Wt 43.6 kg
--- NOTE | 2020-10-05 21:42 | PHYS DOC ---
Past History Past Medical History: Anxiety, Seizure, Other Additional Past Medical Histor: benign cyst on thyroid Past Medical History Hx. of Hypokalemia- chronic, Hx. of Tachycardia- SVT vs PSVT? Past Surgical History: No Surgical History Alcohol Use: None General Adult EDM: Chief Complaint: NAUSEA/VOMITING/DIARRHEA HPI: HPI: "..I had some diarrhea.. and a few more episodes of tachycardia.. I feel better over all..." Patient is a 25 year old female who presents with above hx and complaints nausea, vomiting, diarrhea ,tachycardia, palpitations and history of h ypokalemia. Patient had episodes of hypokalemia in the past. Patient has had episodes of tachycardia in the past. Patient recently completed a observation with Holter monitor ordered by Dr. Mayes her primary care. Patient has not follow-up with pocketbook maker as of yet. Patient has not follow-up with a rotating equipment specialist evaluate for potassium wasting syndrome. Patient does take daily supplementary potassium because of previous hypo-kalemia episodes. Patient does have a history of thyroid cyst. Has not followed with college coach. TSH is pending from the other night. Patient very anxious about her episodes of dysrhythmia. Patient denies any drug use. Patient denies any excessive caffeine use. Patient's episode of diarrhea occurred after milk of mag yesterday. . Patient does have a history of anxiety. No specific ill contacts. No recent travel outside the [place] area. Patient normally follows with Dr. Mayes for care. Pt does smoke Tobacco and Marijuana. Review of Systems: Review of Systems: Constitutional: Denies fever or chills Eyes: Denies change in visual acuity HENT: Denies nasal congestion or sore throat Respiratory: Denies cough or shortness of breath Cardiovascular: Complaints of tachycardia GI: Complains of, nausea, vomiting, and diarrhea : Denies dysuria Musculoskeletal: Denies back pain or joint pain Integument: Denies rash Neurologic: Denies headache, focal weakness or sensory changes Endocrine: Denies polyuria or polydipsia Lymphatic: Denies swollen glands Psychiatric: Denies depression or anxiety Family History: Family History: Noncontributory to presentation Current Medications: Current Meds: See nursing for home medications Allergies: Allergies: Allergies Coded Allergies Type Severity Reaction Last Updated Verified No Known Drug Allergies 07/11/20 No Physical Exam: PE: Constitutional: Well developed, well nourished, no acute distress, non-toxic appearance. [] HENT: Normocephalic, atraumatic, bilateral external ears normal, oropharynx mois t, no oral exudates, nose normal. [] Eyes: PERRLA, EOMI, conjunctiva normal, no discharge. [] Neck: Normal range of motion, no tenderness, supple, no stridor. [] Cardiovascular: Tachycardia heart rate ,regular rhythm, no murmur [] Lungs & Thorax: Bilateral breath sounds equal apex with few scattered wheezes auscultation [] Abdomen: Bowel sounds mild Trevin hyper active, soft, mild generalized discomfort. But no focal areas of tenderness, no masses, no pulsatile masses. No rebound Skin: Warm, dry, no erythema, no rash. [] Back: No tenderness, no CVA tenderness. [] Extremities: No tenderness, no cyanosis, no clubbing, ROM intact, no edema. No cording. No psoas sign. Neurologic: Alert and oriented X 3, normal motor function, normal sensory function, no focal deficits noted. [] Psychologic: Affect very anxious, judgement normal, mood normal. [] Current Patient Data: Vital Signs: Vital Signs Date Time Temp Pulse Resp B/P (MAP) Pulse Ox O2 Delivery O2 Flow Rate FiO2 10/05/20 21:34 97.9 115 16 134/90 (105) 100 Room Air EKG: EKG: My interpretation EKG shows a sinus tachycardia 104 bpm. Does have some bimodal P waves and left leads. But no findings of acute STEMI of contralateral changes.( Bimodal P waves may reflect findings of a alternate pathway that results in supraventricular tachycardia - however SVTor PSVT not been demonstrated on current ED evaluations. Yesterday and today. ) ( Radiology/Procedures: Radiology/Procedures: [][address] [place] [address] IMAGING REPORT Signed PATIENT: PARKER BILLS ACCOUNT: [id number] : 1995 LOCATION: ER AGE: 25 SEX: F EXAM STATUS: REG ER ORD. PHYSICIAN: SIDNEY GRACE MD REASON: nv and pain PROCEDURE: ACUTE ABDOMEN SERIES Exam: Acute abdominal series INDICATION: Nausea vomiting TECHNIQUE: Frontal view of the chest with upright and supine views of the abdomen Comparisons: Chest x-ray same day FINDINGS: The cardiomediastinal silhouette and pulmonary vessels are within normal limits. The lung and pleural spaces are clear. Comparisons are noted throughout the colon to level the rectum in a nonobstructive bowel gas. No free air. No suspicious masses or calcifications. Visualized osseous structures are unremarkable. IMPRESSION: 1. No acute cardiopulmonary process. 2. Nonobstructive bowel gas pattern. Electronically signed by: Hema Mendez MD (10/05/2020 10:09 PM) [facility] DICTATED AND SIGNED BY: HEAM MENDEZ MD DATE: 10/05/202208 CC: SIDNEY GRACE MD; PHILLIP MAYES MD ~MTH0 [address] [place] [address] IMAGING REPORT Signed PATIENT: PARKER BILLS ACCOUNT: [id number] : 1995 LOCATION: ER AGE: 25 SEX: F EXAM STATUS: REG ER ORD. PHYSICIAN: SIDNEY GRACE MD REASON: nv and pain PROCEDURE: ACUTE ABDOMEN SERIES Exam: Acute abdominal series INDICATION: Nausea vomiting TECHNIQUE: Frontal view of the chest with upright and supine views of the abdomen Comparisons: Chest x-ray same day FINDINGS: The cardiomediastinal silhouette and pulmonary vessels are within normal limits. The lung and pleural spaces are clear. Comparisons are noted throughout the colon to level the rectum in a nonobstructive bowel gas. No free air. No suspicious masses or calcifications. Visualized osseous structures are unremarkable. IMPRESSION: 1. No acute cardiopulmonary process. 2. Nonobstructive bowel gas pattern. Electronically signed by: Hema Mendez MD (10/05/2020 10:09 PM) [facility] DICTATED AND SIGNED BY: HEMA MENDEZ MD DATE: 10/05/202208 CC: SIDNEY GRACE MD; PHILLIP MAYES MD ~MTH0 0 Heart Score: HEART Score for Chest Pain: HEART Score for Chest Pain Response (Comments) Value History Slighlty/Non-Suspicious 0 ECG Normal 0 Age < 45 0 Risk Factors No Risk Factors 0 Troponin < Normal Limit 0 Total 0 Risk Factors: Risk Factors: DM, Current or recent (<one month) smoker, HTN, HLP, family history of CAD, obesity. Risk Scores: Score 0 - 3: 2.5% MACE over next 6 weeks - Discharge Home Score 4 - 6: 20.3% MACE over next 6 weeks - Admit for Clinical Observation Score 7 - 10: 72.7% MACE over next 6 weeks - Early Invasive Strategies Course & Med Decision Making: Course & Med Decision Making Pertinent Labs and Imaging studies reviewed. (See chart for details) Pt. continue her supplemental potassium. Follow-up primary care. Consider repeat Holter monitoring. Return if any concerns. Avoid smoking. Must follow- up. Consider nephrology consult for potassium wasting. Suspect current episode of diarrhea is from the milk of mag given last night. Keep follow up with Dr. Mayes. Consider Cardiology consult. Impression: 1. Hx. Tachycardia 2. Hx of Hypokalemia ( normal today) 3. Viral syndrome [] Dragon Disclaimer: Dragon Disclaimer: This electronic medical record was generated, in whole or in part, using a voice recognition dictation system. Departure Departure: Referrals: PHILLIP MAYES MD (PCP) Dragon Disclaimer This chart was dictated in whole or in part using Voice Recognition software in a busy, high-work load, and often noisy Emergency Department environment. It may contain unintended and wholly unrecognized errors or omissions. Dragon Disclaimer This chart was dictated in whole or in part using Voice Recognition software in a busy, high-work load, and often noisy Emergency Department environment. It may contain unintended and wholly unrecognized errors or omissions. Dragon Disclaimer This chart was dictated in whole or in part using Voice Recognition software in a busy, high-work load, and often noisy Emergency Department environment. It may contain unintended and wholly unrecognized errors or omissions. SIDNEY GRACE MD Oct 05, 2020 21:42
[2020-10-05] MEDS ORDERED: POTASSIUM CHLORIDE 20 MEQ TABLET.ER. PO ONE (22:00)
[2020-10-05] MEDS ORDERED: ONDANSETRON PF 4 MG/2 ML VIAL. IVP ONE (22:00)
[2020-10-05] MEDS ORDERED: IV RINGERS SOLUTION,LACTATED 1,000 ML IV SCH (22:00)
[2020-10-05] MEDS ORDERED: FAMOTIDINE 20 MG/2 ML VIAL IVP ONE (22:00)
[2020-10-05 22:11] LABS: BASO % 0 % (0-3); EOS % 1 % (0-3); HEMATOCRIT 42.3 % (36.0-47.0); LYMPH # 2.4 x10^3/uL (1.0-4.8); LYMPH % 37 % (24-48); MEAN CORPUSCULAR HEMOGLOBIN 30 pg (25-35); MEAN CORPUSCULAR HGB CONC 33 g/dL (31-37); MEAN CORPUSCULAR VOLUME 92 fL (79-100); MONO # 0.4 x10^3/uL (0.0-1.1); MONO % 6 % (0-9); NEUT # 3.5 x10^3uL (1.8-7.7); NEUT % 56 % (31-73); PLATELET COUNT 251 x10^3/uL (140-400); RED CELL DISTRIBUTION WIDTH 12.8 % (11.5-14.5); WHITE BLOOD COUNT 6.3 x10^3/uL (4.0-11.0)
--- NOTE | 2020-10-05 22:12 | RAD ---
Exam: Acute abdominal series INDICATION: Nausea vomiting TECHNIQUE: Frontal view of the chest with upright and supine views of the abdomen Comparisons: Chest x-ray same day FINDINGS: The cardiomediastinal silhouette and pulmonary vessels are within normal limits. The lung and pleural spaces are clear. Comparisons are noted throughout the colon to level the rectum in a nonobstructive bowel gas. No free air. No suspicious masses or calcifications. Visualized osseous structures are unremarkable. IMPRESSION: 1. No acute cardiopulmonary process. 2. Nonobstructive bowel gas pattern. Electronically signed by: Hema Adhikari MD (10/05/2020 10:09 PM) [facility]
[2020-10-05 22:26] LABS: CALCIUM 9.6 mg/dL (8.5-10.1); CREATININE 0.7 mg/dL (0.6-1.0); GFR 103.7; POTASSIUM 3.9 mmol/L (3.5-5.1)
[2020-10-05 22:33] LABS: ALBUMIN 4.3 g/dL (3.4-5.0); DIRECT BILIRUBIN 0.1 mg/dL (0.0-0.2); MAGNESIUM 2.1 mg/dL (1.8-2.4); TOTAL BILIRUBIN 0.2 mg/dL (0.2-1.0); TOTAL PROTEIN 7.7 g/dL (6.4-8.2)
[2020-10-05 23:30] VITALS: BP 107/73
[2020-10-06 00:07] LABS: BACTERIA,URINE 0 /HPF (0-FEW); BILIRUBIN,URINE NEG (NEG); CLARITY,URINE CLEAR; COLOR,URINE YELLOW; GLUCOSE,URINE NEG (NEG); NITRITE,URINE NEG (NEG); RBC,URINE 0 /HPF (0-2); SQUAMOUS EPITHELIAL CELL,UR FEW /LPF; UROBILINOGEN,URINE 0.2 mg/dL (0.2 mg/dL); WBC,URINE OCC /HPF (0-4)
[2020-10-06 00:11] LABS: AMPHETAMINE/METHAMPHETAMINE NEG (NEG); BARBITURATES NEG (NEG); BENZODIAZEPINES NEG (NEG); CANNABINOIDS NEG (NEG); COCAINE NEG (NEG); METHADONE NEG (NEG); OPIATES NEG (NEG); PHENCYCLIDINE NEG (NEG)
--- NOTE | 2020-10-07 08:43 | EKG ---
[address] [address] Test Date: 2020-10-05 Test Time: 21:43:46 Pat Name: PARKER BILLS Department: Room: Gender: F Pest Technician: LEAH : 1995 Requested By: SIDNEY GRACE Order Number: [id number] Reading MD: Measurements Intervals [place] Rate: 104 P: 84 MO: 136 QRS: 74 QRSD: 74 T: 37 QT: 310 QTc: 413 Interpretive Statements SINUS TACHYCARDIA LEFT ATRIAL ABNORMALITY ABNORMAL ECG RI6.02 No previous ECG available for comparison
== END 2020-10-06 00:39 | disposition home or self-care (01) ==
LOC: ER 21:20
DX: B34.9 Viral infection, unspecified (principal); E87.6 Hypokalemia; R00.0 Tachycardia, unspecified; F41.9 Anxiety disorder, unspecified; F17.200 Nicotine dependence, unspecified, uncomplicated; F12.10 Cannabis abuse, uncomplicated
CPT/HCPCS: 36415; 74022; 80048; 80076; 80307; 81001; 82150; 82550; 83690; 83735; 84484; 85025; 85610; 85730; 93005; 96361; 96374; 96375; 99285; J2405; J3490; J7120

== ENCOUNTER 2020-10-11 02:10 | Emergency (ER) | payer OTHER ==
[~2020-10-11] VITALS: Ht 160 cm; Wt 43.6 kg
--- NOTE | 2020-10-11 02:14 | PHYS DOC ---
Past History Past Medical History: Anxiety, Seizure, Other Additional Past Medical Histor: benign cyst on thyroid Past Surgical History: No Surgical History Smoking: Cigarettes Alcohol Use: None General Adult HPI: HPI: '. " I woke up with this fast heart rate... I ve had some episodes of hypokalemia... but I don't think that is the cause... I had been seeing Dr. Linton...but I am not seeing him anymore.. the started me on metoprolol..but I did not start taking it yet.. I did take one dose when I was checked out at [facility].... They did lab work and a CT... It did not really show anyt dick.. ".. " I went to [place] because I did not want to wait to be seen... they were busy here that day.. so we drove up there..." Patient is a 25 year old female who presents with above history and complaints of heart palpitations. Patient has history of previous episodes of heart palpitations and hypokalemia. Patient last seen in the emergency room and advised to be on self-isolation and wear a mask anytime she is away from her home. Patient has not completed follow-up with Dr. Linton. Patient has traveled up to [place] where she had electrolyte evaluations and a CT of chest and abdomen. Report of these findings were normal except for some ovarian cyst. Patient has not been doing self-isolation. Pt. has not been wearing her mask. Last visit she was advised she probably had a viral syndrome and to do self isolation and wear a mask at all times however patient refused to wear a mask in the ambulance with paramedics. Patient has not taken her metoprolol as previously prescribed by Dr. Linton. Patient has not completed follow-up with cardiology. Patient does have a history of thyroid cyst. Patient has not completed follow-up with nephrology for her possible potassium wasting. No history of recent travel outside the [place] area. No specific ill contacts. Patient does smoke tobacco and marijuana. Review of Systems: Review of Systems: Constitutional: Denies fever or chills Eyes: Denies change in visual acuity HENT: Denies nasal congestion or sore throat Respiratory: Denies cough or shortness of breath Cardiovascular: Complains of palpitations and tachycardia GI: Denies abdominal pain, nausea, vomiting, bloody stools or diarrhea : Denies dysuria Musculoskeletal: Denies back pain or joint pain Integument: Denies rash Neurologic: Denies headache, focal weakness or sensory changes Endocrine: Denies polyuria or polydipsia Lymphatic: Denies swollen glands Psychiatric: Complains of anxiety Family History: Family History: Noncontributory to presentation Current Medications: Current Meds: See nursing for home meds Allergies: Allergies: Allergies Coded Allergies Type Severity Reaction Last Updated Verified No Known Drug Allergies 07/11/20 No Physical Exam: PE: Constitutional: Complains of anxiety, non-toxic appearance. [] HENT: Normocephalic, atraumatic, bilateral external ears normal, oropharynx moist, post pharyngeal nasal drainage, no oral exudates, nose swollen turbinates and clear rhinorrhea Eyes: PERRLA, EOMI, conjunctiva normal, no discharge. [] Neck: Normal range of motion, no tenderness, supple, no stridor. [] Cardiovascular: Tachycardia heart rate regular rhythm, no murmur [] Lungs & Thorax: Bilateral breath sounds equal apex with scattered wheezes auscultation [] Abdomen: Bowel sounds normal, soft, no tenderness, no masses, no pulsatile masses. [] Skin: Warm, dry, no erythema, no rash. [] Back: No tenderness, no CVA tenderness. [] Extremities: No tenderness, no cyanosis, no clubbing, ROM intact, no edema. [] Neurologic: Alert and oriented X 3, normal motor function, normal sensory function, no focal deficits noted. [] Psychologic: Affect normal, judgement normal, mood normal. [] EKG: EKG: My interpretation EKG shows a sinus tachycardia 129 bpm. There is some bimodal P waves. No findings of acute STEMI of contralateral changes [] Radiology/Procedures: Radiology/Procedures: My interpretation of chest x-ray shows hyperexpansion. No acute interval change. [] Heart Score: HEART Score for Chest Pain: HEART Score for Chest Pain Response (Comments) Value History Moderately Suspicious 1 ECG Nonspecific Repolarizatio 1 Age < 45 0 Risk Factors No Risk Factors 0 Total 2 Risk Factors: Risk Factors: DM, Current or recent (<one month) smoker, HTN, HLP, family history of CAD, obesity. Risk Scores: Score 0 - 3: 2.5% MACE over next 6 weeks - Discharge Home Score 4 - 6: 20.3% MACE over next 6 weeks - Admit for Clinical Observation Score 7 - 10: 72.7% MACE over next 6 weeks - Early Invasive Strategies Course & Med Decision Making: Course & Med Decision Making Pertinent Labs and Imaging studies reviewed. (See chart for details) Patient encouraged to push potassium foods. Patient encouraged to take meds as previous directed. Patient to call cardiology for follow-up. Patient encouraged to keep continuity of her care with one physician or hospital. Patient encouraged to stop smoking. Patient encouraged to wear a mask that covers her nose and mouth at all times. Patient encouraged to continue self- isolation. Patient instructed on the importance of continuity of care. Have primary review ED work-up. Impression: 1. History recurrent episodes of tachycardia SVT versus PSVT 2. History of hypokalemia (3.3 tonight) 3. History of viral syndrome 4. Hx. of Anxiety Fely Disclaimer: Fely Disclaimer: This electronic medical record was generated, in whole or in part, using a voice recognition dictation system. Departure Departure: Referrals: PHILLIP LINTON MD (PCP) SIDNEY GRACE MD Oct 11, 2020 02:14
[2020-10-11] MEDS ORDERED: ASPIRIN CHEWABLE 81 MG TABLET. PO ONE (02:30)
[2020-10-11] MEDS ORDERED: IV RINGERS SOLUTION,LACTATED 1,000 ML IV SCH (02:30)
[2020-10-11 02:46] LABS: BASO % 0 % (0-3); EOS # 0.1 x10^3/uL (0.0-0.7); EOS % 1 % (0-3); HEMATOCRIT 43.3 % (36.0-47.0); HEMOGLOBIN 14.4 g/dL (12.0-15.5); LYMPH # 4.6 x10^3/uL (1.0-4.8); LYMPH % 51 % (24-48); MEAN CORPUSCULAR HEMOGLOBIN 31 pg (25-35); MEAN CORPUSCULAR HGB CONC 33 g/dL (31-37); MEAN CORPUSCULAR VOLUME 92 fL (79-100); MONO # 0.4 x10^3/uL (0.0-1.1); MONO % 5 % (0-9); NEUT # 3.9 x10^3uL (1.8-7.7); NEUT % 44 % (31-73); PLATELET COUNT 239 x10^3/uL (140-400); RED CELL DISTRIBUTION WIDTH 12.7 % (11.5-14.5)
[2020-10-11 02:56] LABS: CALCIUM 9.5 mg/dL (8.5-10.1); CREATININE 0.8 mg/dL (0.6-1.0); GFR 88.9; POTASSIUM 3.3 mmol/L (3.5-5.1)
--- NOTE | 2020-10-11 02:56 | EKG ---
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
[2020-10-11 03:11] LABS: ALBUMIN 4.4 g/dL (3.4-5.0); DIRECT BILIRUBIN 0.1 mg/dL (0.0-0.2); MAGNESIUM 1.8 mg/dL (1.8-2.4); TOTAL BILIRUBIN 0.6 mg/dL (0.2-1.0); TOTAL PROTEIN 7.7 g/dL (6.4-8.2)
[2020-10-11] MEDS ORDERED: POTASSIUM CHLORIDE 20 MEQ TABLET.ER. PO ONE ×2 (04:00→04:05)
[2020-10-11] MEDS ORDERED: METOPROLOL SUCC 24HR ER 25 MG TAB.ER.24H. PO ONE ×2 (04:00→04:05)
[2020-10-11 04:09] VITALS: BP 133/79
[2020-10-11] MEDS ORDERED: MAGNESIUM SULFATE 2GM 50 ML IV ONE (04:30)
--- NOTE | 2020-10-11 16:21 | RAD ---
XR CHEST 1V History: Reason: cp / Spl. Instructions: / History: Comparison: October 05, 2020 Findings: No consolidation or pleural effusion. Normal heart size. No pneumothorax. Nodular opacity projecting over the left lung base related to cardiac monitoring node. Impression: 1. No acute cardiopulmonary process. Electronically signed by: Miah Ralph DO (10/11/2020 3:04 AM) [facility] [place]
== END 2020-10-11 04:22 | disposition home or self-care (01) ==
LOC: ER 02:10
DX: R00.0 Tachycardia, unspecified (principal); F41.9 Anxiety disorder, unspecified; F17.210 Nicotine dependence, cigarettes, uncomplicated
CPT/HCPCS: 36415; 71045; 80048; 80076; 82550; 83690; 83735; 83880; 84484; 85025; 85379; 85610; 85730; 93005; 96360; 99285; J7120